=== PATIENT | female | born 1995 | race Caucasian/White ===

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

== ENCOUNTER 2017-02-21 16:20 | Inpatient (IN) | payer MEDICAID, OTHER ==
[2017-02-21] MEDS ORDERED: Sodium Chloride 0.9% 1,000 ML IV STA (17:17)
--- NOTE | 2017-02-21 17:20 | ED PDOC ---
HPI: General Adult Time Seen by Provider: 02/21/17 17:00 Chief Complaint (Nursing): Abnormal Skin Integrity Chief Complaint (Provider): fever/syncope History Per: Patient (21 y/o female with fever x 1 day. Notes right breast pain with bloody discharge from nipple. Has had sore throat/cervical lymphadenopathy noted. Denies any vomiting/diarrhea.) Past Medical History Reviewed: Historical Data, Nursing Documentation, Vital Signs Vital Signs: Last Vital Signs Temp 100.3 F H 02/21/17 16:49 Pulse 105 H 02/21/17 16:49 Resp 20 02/21/17 16:49 BP Pulse Ox 100 02/21/17 19:47 - Medical History PMH: Asthma - Family History Family History: States: Unknown Family Hx - Home Medications Home Medications: Ambulatory Orders Medication Instructions Recorded No Known Home Med 02/21/17 - Allergies Allergies/Adverse Reactions: Allergies Allergy/AdvReac Type Severity Reaction Status Date / Time Penicillins Allergy Mild RASH Verified 02/21/17 16:48 Review of Systems ROS Statement: Except As Marked, All Systems Reviewed And Found Negative Constitutional: Positive for: Fever Physical Exam - Reviewed Nursing Documentation Reviewed: Yes Vital Signs Reviewed: Yes - Physical Exam Appears: Positive for: Well, Non-toxic, No Acute Distress Head Exam: Positive for: ATRAUMATIC, NORMAL INSPECTION, NORMOCEPHALIC Skin: Positive for: Normal Color, Warm, DRY Eye Exam: Positive for: EOMI, Normal appearance, PERRL ENT: Positive for: Normal ENT Inspection Neck: Positive for: Normal, Painless ROM Cardiovascular/Chest: Positive for: Regular Rate, Rhythm, Other (right nipple tender with escoriation. No abscess discerned.) Respiratory: Positive for: CNT, Normal Breath Sounds Gastrointestinal/Abdominal: Positive for: Normal Exam, Bowel Sounds, Soft Back: Positive for: Normal Inspection Extremity: Positive for: Normal ROM Neurologic/Psych: Positive for: Alert, Oriented - Laboratory Results Result Diagrams: 02/21/17 18:15 02/21/17 18:15 Urine POC: Negative - ECG ECG Rhythm: Positive for: Sinus Tachycardia (109 bpm no ectopy no acute changes) O2 Sat by Pulse Oximetry: 100 - Progress ED Course And Treament: BC X 2 LACTATE WNL CLINDAMYCIN 600MG IV X 1 DOSE CALL PLACED TO HOSPITALIST. Disposition - Clinical Impression Clinical Impression: Mastitis - Patient ED Disposition Is Patient to be Admitted: Yes - Disposition Disposition Time: 19:53 Condition: FAIR Forms: [employer] (Norwegian) - Pt Status Changed To: Hospital Disposition Of: Inpatient - Admit Certification Admit to Inpatient:: After my assessment, the patient will require hospitalization for at least two midnights. This is because of the severity of symptoms shown, intensity of services needed, and/or the medical risk in this patient being treated as an outpatient.
[2017-02-21 18:19] LABS: BASO % 0.1 % (0.0-2.0); EOS % 0.1 % (0.0-4.0); HEMATOCRIT 40.4 % (34.0-47.0); LYMPH # 0.7 K/uL (1.0-4.3); LYMPH % 4.1 % (20.0-40.0); MEAN CELL VOLUME 94.4 fl (81.0-99.0); MEAN CORPUSCULAR HGB CONC 32.8 g/dL (33.0-37.0); MEAN PLATELET VOLUME 6.9 fl (7.2-11.7); MONO # 0.6 K/uL (0.0-0.8); MONO % 3.4 % (0.0-10.0); NEUT # 16.7 K/uL (1.8-7.0); NEUT % 92.3 % (50.0-75.0); PLATELET COUNT 287 K/uL (130-400); RED CELL DISTRIBUTION WIDTH 13.8 % (11.5-14.5); WHITE BLOOD COUNT 18.1 K/uL (4.8-10.8)
[2017-02-21 18:29] LABS: BLOOD UREA NITROGEN 11 mg/dl (7-17); CALCIUM 9.2 mg/dL (8.4-10.2); CARBON DIOXIDE 22 mmol/L (22-30); CHLORIDE 104 mmol/L (98-107); GFR AFRICAN-AMERICAN > 60; GLUCOSE,RANDOM 102 mg/dL (65-105); POTASSIUM 3.7 MMOL/L (3.6-5.0); SODIUM 139 mmol/l (132-148)
[2017-02-21] MEDS ORDERED: Clindamycin 600 MG in Sodium Chloride 0.9% 100 ML IVPB ONE (19:38)
[2017-02-21 20:05] LABS: NEUTROPHIL 87 % (42-75); TOTAL CELLS COUNTED 100
--- NOTE | 2017-02-21 20:12 | CP.PCM.HP ---
History of Present Illness - History of Present Illness History of Present Illness: PCP: None Chief complaint: Painful right breast The patient was seen and examined in the ED HPI: 21 years old female with hx of childhood Asthma, Comes to the Ed with 2 weeks of painful erythema and swelling of the right breast.She noted bloody discharge and fever for the past 2 days. On the day of admission while in school, she was with fever, very dizzy, and on lying down she think's that she passed out. She has been having sore throat and generalized body aches for 2 days, no coughing, vomiting, abdominal pains, diarrhea nor dysuria. PMH: Childhood Asthma; Ruptured Ovarian cyst; Marjuana intoxication PSH: No Surgical hx SH: No Alcohol; No Cigarette Smoking; No illegal drug use; Live in dorm and at home, Goes to College FH: States: Unknown Family Hx Allergies: Penicillin causes rash Medication: None Present on Admission - Present on Admission Any Indicators Present on Admission: No History of DVT/PE: No History of Uncontrolled Diabetes: No Urinary Catheter: No Decubitus Ulcer Present: No Review of Systems - Constitutional Constitutional: Fever. absent: Anorexia, Chills, Headache - EENT Eyes: Requires Corrective Lenses. absent: Diplopia, Floaters, Photophobia, Sees Flashes Ears: absent: Decreased Hearing, Ear Discharge, Tinnitus Nose/Mouth/Throat: Sore Throat, Neck Pain. absent: Epistaxis, Nasal Congestion , Nasal Discharge, Sinus Pain, Sinus Pressure, Hoarsness - Breasts Breasts: Pain, Nipple Discharge. absent: Nipple Inversion, Swelling Additional comments: Right breast pain. - Respiratory Respiratory: absent: Cough, Dyspnea, Wheezing, Stridor - Gastrointestinal Gastrointestinal: absent: Abdominal Pain, Constipation, Diarrhea, Nausea, Vomiting - Genitourinary Genitourinary: absent: Dysuria, Flank Pain, Hematuria, Urinary Frequency - Menstruation Additional comments: LMP 2 weeks ago - Musculoskeletal Additional comments: Pain to the lower back and to the legs - Integumentary Integumentary: Skin Pain. absent: Pruritus, Rash, Skin Ulcer, Sores - Neurological Neurological: Dizziness. absent: Confusion, Focal Weakness, Headaches, Weakness - Psychiatric Psychiatric: Depression. absent: Anxiety, Panic Attacks - Endocrine Endocrine: absent: Palpitations, Polydipsia, Polyphagia, Polyuria - Hematologic/Lymphatic Hematologic: absent: Easy Bleeding, Easy Bruising Past Patient History - Past Medical History & Family History Past Medical History?: Yes - Past Social History Smoking Status: Never Smoked Chewing Tobacco Use: No Cigar Use: No Alcohol: None Drugs: Denies Home Situation {Lives}: Friends - CARDIAC Hx Cardiac Disorders: No - PULMONARY Hx Asthma: Yes - NEUROLOGICAL Hx Neurological Disorder: No - HEENT Hx HEENT Problems: No - RENAL Hx Chronic Kidney Disease: No - ENDOCRINE/METABOLIC Hx Endocrine Disorders: No - HEMATOLOGICAL/ONCOLOGICAL Hx Blood Disorders: No - INTEGUMENTARY Hx Dermatological Problems: No - MUSCULOSKELETAL/RHEUMATOLOGICAL Hx Musculoskeletal Disorders: No - GASTROINTESTINAL Hx Gastrointestinal Disorders: No - GENITOURINARY/GYNECOLOGICAL Hx Genitourinary Disorders: No - PSYCHIATRIC Hx Depression: Yes Hx Substance Use: No - SURGICAL HISTORY Hx Surgeries: No - ANESTHESIA Hx Anesthesia: No Meds Allergies/Adverse Reactions: Allergies Allergy/AdvReac Type Severity Reaction Status Date / Time Penicillins Allergy Mild RASH Verified 02/22/17 00:21 Physical Exam - Constitutional Appears: No Acute Distress - Head Exam Head Exam: ATRAUMATIC, NORMOCEPHALIC - Eye Exam Eye Exam: EOMI, Normal appearance Pupil Exam: NORMAL ACCOMODATION, PERRL - ENT Exam ENT Exam: Normal External Ear Exam, Normal Oropharynx - Neck Exam Additional comments: Throat eith enlarged tonsilles with mild erythema - Respiratory Exam Respiratory Exam: Clear to Auscultation Bilateral. absent: Rales, Rhonchi, Wheezes - Cardiovascular Exam Cardiovascular Exam: REGULAR RHYTHM, RRR, +S1, +S2. absent: Gallop, JVD - GI/Abdominal Exam GI & Abdominal Exam: Normal Bowel Sounds, Soft. absent: Mass, Tenderness - Rectal Exam Rectal Exam: Deferred - Extremities Exam Additional comments: Pain to the left ankle more than the right ankle No pain to the Calf muscles nor the thighs - Back Exam Back exam: NORMAL INSPECTION. absent: CVA tenderness (L), CVA tenderness (R) - Neurological Exam Neurological exam: Alert, CN II-XII Intact, Oriented x3, Reflexes Normal - Psychiatric Exam Psychiatric exam: Normal Affect, Normal Mood - Skin Skin Exam: Dry, Intact, Warm Additional comments: The right breast is soft, no masses, tender completely from the upper margins to the anterior axilla kulwinder to below the breast and to the medial margin of the preast. There is an erythematous line surrounding the nipple approximately 3cm radius. No right axilla lymphadenopathy. Results - Vital Signs Recent Vital Signs: Last Vital Signs Temp 100.3 F H 02/21/17 16:49 Pulse 105 H 02/21/17 16:49 Resp 20 02/21/17 16:49 BP Pulse Ox 100 02/21/17 19:47 - Labs Result Diagrams: 02/21/17 18:15 02/21/17 18:15 Labs: Laboratory Results - last 24 hr 02/21/17 02/21/17 02/21/17 18:15 18:15 18:15 WBC 18.1 H D RBC 4.28 Hgb 13.3 Hct 40.4 MCV 94.4 MCH 31.0 MCHC 32.8 L RDW 13.8 Plt Count 287 MPV 6.9 L Neut % (Auto) 92.3 H Lymph % (Auto) 4.1 L Reynolds % (Auto) 3.4 Eos % (Auto) 0.1 Baso % (Auto) 0.1 Neut # 16.7 H Lymph # 0.7 L Reynolds # 0.6 Eos # 0.0 Baso # 0.0 Neutrophils % (Manual) 87 H Band Neutrophils % 4 H Lymphocytes % (Manual) 5 L Monocytes % (Manual) 4 Platelet Estimate Normal Anisocytosis (manual) Slight Macrocytosis (manual) Slight Sodium 139 Potassium 3.7 Chloride 104 Carbon Dioxide 22 Anion Gap 17 BUN 11 Creatinine 0.7 Est GFR ( Amer) > 60 Est GFR (Non-Af Amer) > 60 Random Glucose 102 Lactic Acid 1.4 Calcium 9.2 Infectious Reynolds Assay Grp A Beta Strep Ag 02/21/17 02/21/17 18:15 18:15 WBC RBC Hgb Hct MCV MCH MCHC RDW Plt Count MPV Neut % (Auto) Lymph % (Auto) Reynolds % (Auto) Eos % (Auto) Baso % (Auto) Neut # Lymph # Reynolds # Eos # Baso # Neutrophils % (Manual) Band Neutrophils % Lymphocytes % (Manual) Monocytes % (Manual) Platelet Estimate Anisocytosis (manual) Macrocytosis (manual) Sodium Potassium Chloride Carbon Dioxide Anion Gap BUN Creatinine Est GFR ( Amer) Est GFR (Non-Af Amer) Random Glucose Lactic Acid Calcium Infectious Reynolds Assay Negative Grp A Beta Strep Ag Negative - Imaging and Cardiology US of Right Breast Additional comment: EXAM: US Right Breast Complete FINDINGS: Solid nodules: None. Cystic masses: None. Architectural distortion: None. Acoustical shadowing: None. Skin thickening: None. Axillary adenopathy: None. IMPRESSION: No sonographic evidence of abscess within the right breast. Assessment & Plan - Assessment and Plan (Free Text) Assessment: #.Right Mastitis #.Viral syndrome Plan: 21 years old female with hx of childhood Asthma, Comes to the Ed with 2 weeks of painful erythema and swelling of the right breast, with bloody discharge and fever for the past 2 days. Associated with dizziness body aches and throat aches. #. Mastitis - Consult ID Dr Bear - Clindamycin - Aztreonam - IV Fluid - Warm compressor to breast - Pain management with Toradol - Follow Blood Cultures #.Viral syndrome - Tylenol for fever - Pain management #. DVT Prophylaxis with Lovenox #. Code Status:Full - Date & Time Date: 02/21/17 Time: 20:12
--- NOTE | 2017-02-21 21:03 | US ---
EXAM: US Right Breast Complete CLINICAL HISTORY: 21 years old, female; Pain; Breast pain; Right; Additional info: R/O abscess TECHNIQUE: Static sonographic images of the right breast with image documentation utilizing a linear transducer. Imaging was obtained in all four quadrants, retroareolar region, and the axillae. COMPARISON: No relevant prior studies available. FINDINGS: Solid nodules: None. Cystic masses: None. Architectural distortion: None. Acoustical shadowing: None. Skin thickening: None. Axillary adenopathy: None. IMPRESSION: No sonographic evidence of abscess within the right breast.
[2017-02-21] MEDS ORDERED: Sodium Chloride 0.9% 1,000 ML IV SCH (21:45)
[2017-02-22 01:39] VITALS: BMI 23.1
[2017-02-22] MEDS: Clindamycin 600 MG in Sodium Chloride 0.9% 100 ML IVPB SCH ×2 (04:01→12:05)
[2017-02-22 06:42] LABS: BASO % 0.2 % (0.0-2.0); EOS # 0.1 K/uL (0.0-0.7); EOS % 0.8 % (0.0-4.0); HEMATOCRIT 32.4 % (34.0-47.0); LYMPH # 0.7 K/uL (1.0-4.3); LYMPH % 5.5 % (20.0-40.0); MEAN CELL VOLUME 94.2 fl (81.0-99.0); MEAN CORPUSCULAR HEMOGLOBIN 31.6 pg (27.0-31.0); MEAN CORPUSCULAR HGB CONC 33.6 g/dL (33.0-37.0); MONO # 0.6 K/uL (0.0-0.8); MONO % 4.3 % (0.0-10.0); NEUT # 11.5 K/uL (1.8-7.0); NEUT % 89.2 % (50.0-75.0); RED CELL DISTRIBUTION WIDTH 13.3 % (11.5-14.5); WHITE BLOOD COUNT 12.9 K/uL (4.8-10.8)
--- NOTE | 2017-02-22 08:05 | CARD ---
APPROVED REPORT EKG Measurement Heart [id number] <Conclusion> Sinus tachycardia Incomplete right bundle branch block Borderline ECG
[2017-02-22] MEDS: Enoxaparin 40 mg Syringe SC SCH (09:24)
--- NOTE | 2017-02-22 11:25 | CP.PCM.CON ---
History of Present Illness - History of Present Illness History of Present Illness: Infectious Disease Consultation Note- Asked to see this patient at the request of the hospitalist for mastitis. HPI- Patient is a 21 year old female with no pmh other than childhood asthma who presented to the hospital yesterday c/o right breast pain and bloody discharge from the nipple and warmth and redness on the right breast along with fever , lighheadedness and weakness. Patient explains her symptoms started about 2 weeks ago with some bloody nipple discharge but she did not think much of it but states the other day she was at school and developed fever and bloody right nipple discharge and passed out and school nurse told her she should go to ER for further evaluation. Pt. denies any injury to the breast region and denies having anything like this before. Pt. states few years ago she had cellulitis of the right foot and she got rash with PCN but no other reaction and rash was localized as per pt. Pt. also states she had sore throat yesterday but not today. she also mentions that there is family history of breast cancer in her maternal grandaunt and grandmother. pt. states she has never been and is not now. PMH: Childhood Asthma, cellulitis of the right foot few years ago PSH: No Surgical hx SH: No Alcohol; No Cigarette Smoking; No illegal drug use; Live in dorm and at home, Goes to College Allergies: Penicillin causes rash Medication: None Review of Systems - Review of Systems Review of Systems: ROS- + fever, denies any ALEJANDRO, denies any cough, + sore throat but not now, denies any sob, denies any chest pain, denies any N/V, denies any abd. pain, denies any dysurea, denies any diarrhea + right breast pain and redness and warmth and right nipple bloody discharge for 2 weeks lissette nd off and once pus like discharge Past Patient History - Past Medical History & Family History Past Medical History?: Yes - Past Social History Smoking Status: Never Smoked Chewing Tobacco Use: No Cigar Use: No Alcohol: None Drugs: Denies Home Situation {Lives}: With Family - CARDIAC Hx Cardiac Disorders: No - PULMONARY Hx Asthma: Yes - NEUROLOGICAL Hx Neurological Disorder: No - HEENT Hx HEENT Problems: No - RENAL Hx Chronic Kidney Disease: No - ENDOCRINE/METABOLIC Hx Endocrine Disorders: No - HEMATOLOGICAL/ONCOLOGICAL Hx Blood Disorders: No - INTEGUMENTARY Hx Dermatological Problems: No - MUSCULOSKELETAL/RHEUMATOLOGICAL Hx Musculoskeletal Disorders: No - GASTROINTESTINAL Hx Gastrointestinal Disorders: No - GENITOURINARY/GYNECOLOGICAL Hx Genitourinary Disorders: No - PSYCHIATRIC Hx Depression: Yes Hx Substance Use: No - SURGICAL HISTORY Hx Surgeries: No - ANESTHESIA Hx Anesthesia: No Meds Allergies/Adverse Reactions: Allergies Allergy/AdvReac Type Severity Reaction Status Date / Time Penicillins Allergy Mild RASH Verified 02/22/17 00:21 - Medications Medications: Current Medications Acetaminophen (Tylenol 325mg Tab) 650 mg PO Q4 PRN PRN Reason: Fever >100.4 F Last Admin: 02/22/17 05:53 Dose: 650 mg Enoxaparin Sodium (Lovenox) 40 mg SC DAILY DALLIN PRN Reason: Protocol Last Admin: 02/22/17 09:24 Dose: 40 mg Clindamycin Phosphate 600 mg/ (Sodium Chloride) 104 mls @ 104 mls/hr IVPB Q8H DALLIN PRN Reason: Protocol Last Admin: 02/22/17 04:01 Dose: 104 mls/hr Aztreonam 1 gm/ Sodium (Chloride) 50 mls @ 50 mls/hr IVPB Q8@0000,0800,1600 DALLIN PRN Reason: Protocol Last Admin: 02/22/17 09:00 Dose: 50 mls/hr Ketorolac Tromethamine (Toradol) 15 mg IVP Q6 PRN PRN Reason: Pain, moderate (4-7) Ketorolac Tromethamine (Toradol) 30 mg IVP Q6 PRN PRN Reason: Pain, severe (8-10) Physical Exam - Constitutional Appears: No Acute Distress - Head Exam Head Exam: ATRAUMATIC, NORMAL INSPECTION - Eye Exam Eye Exam: EOMI, PERRL - ENT Exam ENT Exam: Normal Oropharynx - Neck Exam Neck exam: Positive for: Full Rom - Respiratory Exam Respiratory Exam: Clear to Auscultation Bilateral, NORMAL BREATHING PATTERN - Cardiovascular Exam Cardiovascular Exam: RRR, +S1, +S2 - GI/Abdominal Exam GI & Abdominal Exam: Normal Bowel Sounds, Soft Additional comments: NT, ND - Extremities Exam Extremities exam: Positive for: normal inspection - Neurological Exam Neurological exam: Alert, Oriented x3 - Skin Additional comments: Right breast- minimal erythematous skin around the peripheral nipple region up to mid outer breast region, very tender to touch, no lumps on exam but ecam limited secondary to patient's pain . no active nipple discharge now on exam, minimal scant yellow fluid seen on tip of the nipple only , however, pt. very tender to touch and hence not expressed ( accounting professor her mother present the whole time during exam). Results - Vital Signs Recent Vital Signs: Last Vital Signs Temp 99.4 F 02/22/17 08:10 Pulse 90 02/22/17 08:10 Resp 20 02/22/17 08:10 BP 106/80 02/22/17 08:10 Pulse Ox 98 02/22/17 08:10 - Labs Result Diagrams: 02/22/17 05:50 02/21/17 18:15 Labs: Laboratory Results - last 24 hr 02/21/17 02/21/17 02/21/17 18:15 18:15 18:15 WBC 18.1 H D RBC 4.28 Hgb 13.3 Hct 40.4 MCV 94.4 MCH 31.0 MCHC 32.8 L RDW 13.8 Plt Count 287 MPV 6.9 L Neut % (Auto) 92.3 H Lymph % (Auto) 4.1 L Tyrrell % (Auto) 3.4 Eos % (Auto) 0.1 Baso % (Auto) 0.1 Neut # 16.7 H Lymph # 0.7 L Tyrrell # 0.6 Eos # 0.0 Baso # 0.0 Neutrophils % (Manual) 87 H Band Neutrophils % 4 H Lymphocytes % (Manual) 5 L Monocytes % (Manual) 4 Platelet Estimate Normal Anisocytosis (manual) Slight Macrocytosis (manual) Slight Sodium 139 Potassium 3.7 Chloride 104 Carbon Dioxide 22 Anion Gap 17 BUN 11 Creatinine 0.7 Est GFR ( Amer) > 60 Est GFR (Non-Af Amer) > 60 Random Glucose 102 Lactic Acid 1.4 Calcium 9.2 Infectious Tyrrell Assay Grp A Beta Strep Ag 02/21/17 02/21/17 02/22/17 18:15 18:15 05:50 WBC 12.9 H RBC 3.44 L Hgb 10.9 L D Hct 32.4 L MCV 94.2 MCH 31.6 H MCHC 33.6 RDW 13.3 Plt Count 231 MPV 7.0 L Neut % (Auto) 89.2 H Lymph % (Auto) 5.5 L Tyrrell % (Auto) 4.3 Eos % (Auto) 0.8 Baso % (Auto) 0.2 Neut # 11.5 H Lymph # 0.7 L Tyrrell # 0.6 Eos # 0.1 Baso # 0.0 Neutrophils % (Manual) Band Neutrophils % Lymphocytes % (Manual) Monocytes % (Manual) Platelet Estimate Anisocytosis (manual) Macrocytosis (manual) Sodium Potassium Chloride Carbon Dioxide Anion Gap BUN Creatinine Est GFR ( Amer) Est GFR (Non-Af Amer) Random Glucose Lactic Acid Calcium Infectious Tyrrell Assay Negative Grp A Beta Strep Ag Negative Laboratory Results - last 72 hr 02/21/17 02/21/17 02/21/17 18:15 18:15 18:15 WBC 18.1 H D RBC 4.28 Hgb 13.3 Hct 40.4 MCV 94.4 MCH 31.0 MCHC 32.8 L RDW 13.8 Plt Count 287 MPV 6.9 L Neut % (Auto) 92.3 H Lymph % (Auto) 4.1 L Tyrrell % (Auto) 3.4 Eos % (Auto) 0.1 Baso % (Auto) 0.1 Neut # 16.7 H Lymph # 0.7 L Tyrrell # 0.6 Eos # 0.0 Baso # 0.0 Neutrophils % (Manual) 87 H Band Neutrophils % 4 H Lymphocytes % (Manual) 5 L Monocytes % (Manual) 4 Platelet Estimate Normal Anisocytosis (manual) Slight Macrocytosis (manual) Slight Sodium 139 Potassium 3.7 Chloride 104 Carbon Dioxide 22 Anion Gap 17 BUN 11 Creatinine 0.7 Est GFR ( Amer) > 60 Est GFR (Non-Af Amer) > 60 Random Glucose 102 Lactic Acid 1.4 Calcium 9.2 Infectious Tyrrell Assay Grp A Beta Strep Ag 02/21/17 02/21/17 02/22/17 18:15 18:15 05:50 WBC 12.9 H RBC 3.44 L Hgb 10.9 L D Hct 32.4 L MCV 94.2 MCH 31.6 H MCHC 33.6 RDW 13.3 Plt Count 231 MPV 7.0 L Neut % (Auto) 89.2 H Lymph % (Auto) 5.5 L Tyrrell % (Auto) 4.3 Eos % (Auto) 0.8 Baso % (Auto) 0.2 Neut # 11.5 H Lymph # 0.7 L Tyrrell # 0.6 Eos # 0.1 Baso # 0.0 Neutrophils % (Manual) Band Neutrophils % Lymphocytes % (Manual) Monocytes % (Manual) Platelet Estimate Anisocytosis (manual) Macrocytosis (manual) Sodium Potassium Chloride Carbon Dioxide Anion Gap BUN Creatinine Est GFR ( Amer) Est GFR (Non-Af Amer) Random Glucose Lactic Acid Calcium Infectious Tyrrell Assay Negative Grp A Beta Strep Ag Negative Accession No. : [id number] Patient Name / ID : ANIA Bob / [id number] Exam Date : 02/21/2017 20:10:10 ( Approved ) Study Comment : Sex / Age : F / 21 Creator : Waldo Chino MD Dictator : Dumpster Operator : Jig And Fixture Builder : Waldo Chino MD Approver2 : Report Date : 02/21/2017 21:02:00 My Comment : [facility] Division of Radiology [address] [place] [address] Tel. no. Patient Name: PERLA BAEZ Pt. Address: [address] [place] [address] Rec #: [id number] [place] [address]: Rah Aguilar PA-C Pt CELL Order Location: [facility] : 1995 Female Age: 21 Order #: [id number] Reason for exam: R/O ABSCESS Ultrasound BREAST UNILATERAL RIGHT Exam Date: 02/21/17 This imaging exam was performed at [facility] EXAM: US Right Breast Complete CLINICAL HISTORY: 21 years old, female; Pain; Breast pain; Right; Additional info: R/O abscess TECHNIQUE: Static sonographic images of the right breast with image documentation utilizing a linear transducer. Imaging was obtained in all four quadrants, retroareolar region, and the axillae. COMPARISON: No relevant prior studies available. FINDINGS: Solid nodules: None. Cystic masses: None. Architectural distortion: None. Acoustical shadowing: None. Skin thickening: None. Axillary adenopathy: None. IMPRESSION: No sonographic evidence of abscess within the right breast. Dictated By: Waldo Chino MD Dictated Date/Time: 02/21/172101 Signed By: Waldo Chino MD Date Signed: 2101 Transcribed By: CLEM Transcribe Date/Time : 02/21/172101 ACYP02/YOSHI Assessment & Plan (1) Mastitis Status: Acute (2) Fever Status: Acute - Assessment and Plan (Free Text) Assessment: A/P- 21 year old female with right mastitis, rule out abscess. continues to be febrile although fever t-max are trending down. Leukocytosis improving . no culture results yet. breast US as per report no cyst or mas or any fluid collection. plan- check blood cx x 2. advise to continue with current antibiotics ( aztreonam) since pt. has been repsonding to this with decrease in wbc. however would advise to start IV vancomycin while inpatient and d/c clindamycin for now. monitor temps and wbc. If possible check swab cx of the nipple discharge if present. advise to apply warm compress to the right breast region not directly on the nipple, however, advise to also send the nipple discharge fluid for cytology since there ifs family history of breast cancer. may need to be seen by ANIMAL NURSE or breast specialist as well. All above d/w patient and her mother who is at bedside and they verbalize full understanding of all above. Thank you fro allowing me to take part in the care of this patient.
--- NOTE | 2017-02-22 14:57 | CP.PCM.PN ---
Subjective - Date & Time of Evaluation Date of Evaluation: 02/22/17 Time of Evaluation: 14:00 - Subjective Subjective: Pt remains febrile however WBC count trended down pt states her breast feels very heavy and tender , sl better today Attempted to express out any discharge ( for culture/cytolgy )however nothing came out Pt denies any other symptom Pt states that she covered her nipple with cotton wipe and when she woke up she noticed blood tinge discharge on the cotton however she did not see any gross blood coming out of the nipple Mother at bedside , discussed test results and treatment plan Objective - Vital Signs/Intake and Output Vital Signs (last 24 hours): Temp Pulse Resp BP Pulse Ox 100.2 F H 104 H 22 122/70 100 02/22/17 13:39 02/22/17 12:25 02/22/17 12:25 02/22/17 12:25 02/22/17 12:25 Intake and Output: 02/22/17 02/22/17 06:59 18:59 Intake Total 1150 Balance 1150 - Medications Medications: Current Medications Acetaminophen (Tylenol 325mg Tab) 650 mg PO Q4 PRN PRN Reason: Fever >100.4 F Last Admin: 02/22/17 12:39 Dose: 650 mg Enoxaparin Sodium (Lovenox) 40 mg SC DAILY DALLIN PRN Reason: Protocol Last Admin: 02/22/17 09:24 Dose: 40 mg Aztreonam 1 gm/ Sodium (Chloride) 50 mls @ 50 mls/hr IVPB Q8@0000,0800,1600 DALLIN PRN Reason: Protocol Last Admin: 02/22/17 09:00 Dose: 50 mls/hr Vancomycin HCl 1 gm/ Sodium (Chloride) 250 mls @ 166.667 mls/hr IVPB Q12 DALLIN PRN Reason: Protocol Ibuprofen (Motrin Tab) 400 mg PO Q6 PRN PRN Reason: Pain, Mild (1-3) Ketorolac Tromethamine (Toradol) 15 mg IVP Q6 PRN PRN Reason: Pain, moderate (4-7) Ketorolac Tromethamine (Toradol) 30 mg IVP Q6 PRN PRN Reason: Pain, severe (8-10) - Labs Labs: 02/22/17 05:50 02/21/17 18:15 - Constitutional Appears: No Acute Distress - Head Exam Head Exam: NORMAL INSPECTION, NORMOCEPHALIC - Eye Exam Eye Exam: EOMI, Normal appearance, PERRL Pupil Exam: NORMAL ACCOMODATION - ENT Exam ENT Exam: Mucous Membranes Moist, Normal External Ear Exam - Neck Exam Neck Exam: Full ROM. absent: Meningismus - Respiratory Exam Respiratory Exam: NORMAL BREATHING PATTERN. absent: Respiratory Distress - Cardiovascular Exam Cardiovascular Exam: REGULAR RHYTHM, +S1, +S2 Additional comments: Right breast larger than left , erythematous patch noted , tender no nipple discharge - GI/Abdominal Exam GI & Abdominal Exam: Soft, Normal Bowel Sounds. absent: Tenderness - Extremities Exam Extremities Exam: Full ROM, Normal Capillary Refill. absent: Calf Tenderness - Back Exam Back Exam: Full ROM. absent: CVA tenderness (L), CVA tenderness (R) - Neurological Exam Neurological Exam: Alert, Awake, CN II-XII Intact, Oriented x3 Neuro motor strength exam: Left Upper Extremity: 5, Right Upper Extremity: 5, Left Lower Extremity: 5, Right Lower Extremity: 5 - Psychiatric Exam Psychiatric exam: Normal Affect, Normal Mood - Skin Skin Exam: Dry, Normal Color, Warm Assessment and Plan (1) Mastitis Status: Acute - Assessment and Plan (Free Text) Assessment: 21 y/o lady , no significcant PMH, came in bec of fever, and right breast pain and swelling. 1. Right Breast Cellulitis/Mastitis , non puerperal Pt came in with fever, elevated WBC , breast pain, swelling, tenderness Noted a tinge of blood on cotton used to cover nipple however denies any gross bloody discharge. Pt started on IV Clinda and Aztreonam ID consulted- rec to cont Aztreonam and change Clinda to Vanco I attempted to express discharge from nipple however NO discharge came out that can be cultured or sent for Cytology Warm compress Pain mgt Blood c/s : pending 2. DVT proph - Lovenox
[2017-02-22] MEDS ORDERED: DiphenhydrAMINE 50 mg/ml Inj IM STA (21:21)
[2017-02-22] MEDS ORDERED: DiphenhydrAMINE 50 mg/ml Inj IVP STA (21:39)
[2017-02-22] MEDS ORDERED: Sodium Chloride 0.9% 1,000 ML IV SCH (21:45)
[2017-02-23 05:37] LABS: BASO % 0.2 % (0.0-2.0); EOS # 0.3 K/uL (0.0-0.7); EOS % 3.3 % (0.0-4.0); LYMPH # 1.7 K/uL (1.0-4.3); LYMPH % 18.7 % (20.0-40.0); MEAN CELL VOLUME 93.9 fl (81.0-99.0); MEAN CORPUSCULAR HEMOGLOBIN 31.9 pg (27.0-31.0); MEAN PLATELET VOLUME 6.7 fl (7.2-11.7); MONO # 0.6 K/uL (0.0-0.8); MONO % 6.1 % (0.0-10.0); NEUT # 6.7 K/uL (1.8-7.0); NEUT % 71.7 % (50.0-75.0); RED CELL DISTRIBUTION WIDTH 13.8 % (11.5-14.5); WHITE BLOOD COUNT 9.3 K/uL (4.8-10.8)
[2017-02-23] MEDS: Enoxaparin 40 mg Syringe SC SCH (09:23)
--- NOTE | 2017-02-23 12:27 | CP.PCM.PN ---
Subjective - Date & Time of Evaluation Date of Evaluation: 02/23/17 Time of Evaluation: 12:26 - Subjective Subjective: pt seen examined bedside for L sided mastitis states it is appearing more red than before HD stable still very tender especially on movement. Objective - Vital Signs/Intake and Output Vital Signs (last 24 hours): Temp Pulse Resp BP Pulse Ox 98.3 F 94 H 24 112/67 99 02/23/17 08:00 02/23/17 08:00 02/23/17 08:00 02/23/17 08:00 02/23/17 08:00 Physical exam: Constitutional- cooperative, awake, alert. Head- NCAT, PERRL Eye- PERRL, normal accommodation ENT- normal exam, MMM. Neck- normal inspection, supple, no JVD Respiratory- CTAB, no wheezes rales rhonchi Chest- left breast moderately edematous compared to right breast, increased erythema today, exquisitely tender, nipple appears normal Cardiovascular- RRR, +S1, +S2 no MRG GI/Abdominal- normal bowel sounds, soft, no mass, no hsm Skin- warm, dry Extremities Exam- normal capillary refill, normal inspection Neurological Exam- alert, stable gait Psych- normal mood, normal affect Intake and Output: 02/23/17 02/23/17 06:59 18:59 Intake Total 1680 Balance 1680 - Medications Medications: Current Medications Acetaminophen (Tylenol 325mg Tab) 650 mg PO Q4 PRN PRN Reason: Fever >100.4 F Last Admin: 02/23/17 01:12 Dose: 650 mg Enoxaparin Sodium (Lovenox) 40 mg SC DAILY DALLIN PRN Reason: Protocol Last Admin: 02/23/17 09:23 Dose: 40 mg Aztreonam 1 gm/ Sodium (Chloride) 50 mls @ 50 mls/hr IVPB Q8@0000,0800,1600 DALLIN PRN Reason: Protocol Last Admin: 02/23/17 08:09 Dose: 50 mls/hr Sodium Chloride (Sodium Chloride 0.9%) 1,000 mls @ 100 mls/hr IV .Q10H DALLIN Stop: 02/23/17 21:40 Last Admin: 02/23/17 06:47 Dose: 100 mls/hr Vancomycin HCl 1 gm/ Sodium (Chloride) 250 mls @ 75 mls/hr IVPB Q12 DALLIN PRN Reason: Protocol Last Admin: 02/23/17 09:49 Dose: 75 mls/hr Ibuprofen (Motrin Tab) 400 mg PO Q6 PRN PRN Reason: Pain, Mild (1-3) Last Admin: 02/22/17 16:10 Dose: 400 mg Ketorolac Tromethamine (Toradol) 15 mg IVP Q6 PRN PRN Reason: Pain, moderate (4-7) Ketorolac Tromethamine (Toradol) 30 mg IVP Q6 PRN PRN Reason: Pain, severe (8-10) - Labs Labs: 02/23/17 05:20 02/21/17 18:15 Assessment and Plan - Assessment and Plan (Free Text) Plan: 21 y/o lady, no significcant PMH, came in 2/2 fever and right breast pain and swelling. 1. Right Breast Cellulitis/Mastitis , non puerperal Pt came in with fever, elevated WBC , breast pain, swelling, tenderness Noted a tinge of blood on cotton used to cover nipple however denies any gross bloody discharge. Pt started on IV Clinda and Aztreonam ID consulted- rec to cont Aztreonam and change Clinda to Vanco, given slowly will obtain surgery cx and breast MRI Warm compress Pain mgt Blood c/s : pending 2. DVT proph - Lovenox
--- NOTE | 2017-02-23 13:34 | CP.PCM.PN ---
Subjective - Date & Time of Evaluation Date of Evaluation: 02/23/17 Time of Evaluation: 12:00 - Subjective Subjective: ID note- Pt. seen and examined today.pt. had low grade fever earlier today . she states she developed minor itching on her neck region with the IV vancomycin but once the infusion rate was slowed it was resolved. She denies any rash. she states the pain in the right breast is less but she still has swelling , denies any further nipple discharge. Objective - Vital Signs/Intake and Output Vital Signs (last 24 hours): Temp Pulse Resp BP Pulse Ox 99.9 F H 93 H 22 119/73 100 02/23/17 12:25 02/23/17 12:25 02/23/17 12:25 02/23/17 12:25 02/23/17 12:25 Intake and Output: 02/23/17 02/23/17 06:59 18:59 Intake Total 1680 Balance 1680 - Medications Medications: Current Medications Acetaminophen (Tylenol 325mg Tab) 650 mg PO Q4 PRN PRN Reason: Fever >100.4 F Last Admin: 02/23/17 01:12 Dose: 650 mg Enoxaparin Sodium (Lovenox) 40 mg SC DAILY DALLIN PRN Reason: Protocol Last Admin: 02/23/17 09:23 Dose: 40 mg Aztreonam 1 gm/ Sodium (Chloride) 50 mls @ 50 mls/hr IVPB Q8@0000,0800,1600 DALLIN PRN Reason: Protocol Last Admin: 02/23/17 08:09 Dose: 50 mls/hr Sodium Chloride (Sodium Chloride 0.9%) 1,000 mls @ 100 mls/hr IV .Q10H DALLIN Stop: 02/23/17 21:40 Last Admin: 02/23/17 06:47 Dose: 100 mls/hr Vancomycin HCl 1 gm/ Sodium (Chloride) 250 mls @ 75 mls/hr IVPB Q12 DALLIN PRN Reason: Protocol Last Admin: 02/23/17 09:49 Dose: 75 mls/hr Ibuprofen (Motrin Tab) 400 mg PO Q6 PRN PRN Reason: Pain, Mild (1-3) Last Admin: 02/22/17 16:10 Dose: 400 mg Ketorolac Tromethamine (Toradol) 15 mg IVP Q6 PRN PRN Reason: Pain, moderate (4-7) Ketorolac Tromethamine (Toradol) 30 mg IVP Q6 PRN PRN Reason: Pain, severe (8-10) - Labs Labs: - Additional Findings Additional findings: - Constitutional Appears: No Acute Distress - Head Exam Head Exam: ATRAUMATIC, NORMAL INSPECTION - Eye Exam Eye Exam: EOMI, PERRL - ENT Exam ENT Exam: Normal Oropharynx - Neck Exam Neck exam: Positive for: Full Rom - Respiratory Exam Respiratory Exam: Clear to Auscultation Bilateral, NORMAL BREATHING PATTERN - Cardiovascular Exam Cardiovascular Exam: RRR, +S1, +S2 - GI/Abdominal Exam GI & Abdominal Exam: Normal Bowel Sounds, Soft Additional comments: NT, ND - Extremities Exam Extremities exam: Positive for: normal inspection - Neurological Exam Neurological exam: Alert, Oriented x3 - Skin Additional comments: Right breast- minimal erythematous skin around the peripheral nipple region has resolved, still has tenderness but much less than yesterday, no active nipple discharge, (assembler musical equipment her mother and the nurse present the whole time during exam). Laboratory Results - last 72 hr 02/21/17 02/21/17 02/21/17 18:15 18:15 18:15 WBC 18.1 H D RBC 4.28 Hgb 13.3 Hct 40.4 MCV 94.4 MCH 31.0 MCHC 32.8 L RDW 13.8 Plt Count 287 MPV 6.9 L Neut % (Auto) 92.3 H Lymph % (Auto) 4.1 L Swain % (Auto) 3.4 Eos % (Auto) 0.1 Baso % (Auto) 0.1 Neut # 16.7 H Lymph # 0.7 L Swain # 0.6 Eos # 0.0 Baso # 0.0 Neutrophils % (Manual) 87 H Band Neutrophils % 4 H Lymphocytes % (Manual) 5 L Monocytes % (Manual) 4 Platelet Estimate Normal Anisocytosis (manual) Slight Macrocytosis (manual) Slight Sodium 139 Potassium 3.7 Chloride 104 Carbon Dioxide 22 Anion Gap 17 BUN 11 Creatinine 0.7 Est GFR ( Amer) > 60 Est GFR (Non-Af Amer) > 60 Random Glucose 102 Lactic Acid 1.4 Calcium 9.2 Infectious Swain Assay Grp A Beta Strep Ag 02/21/17 02/21/17 02/22/17 18:15 18:15 05:50 WBC 12.9 H RBC 3.44 L Hgb 10.9 L D Hct 32.4 L MCV 94.2 MCH 31.6 H MCHC 33.6 RDW 13.3 Plt Count 231 MPV 7.0 L Neut % (Auto) 89.2 H Lymph % (Auto) 5.5 L Swain % (Auto) 4.3 Eos % (Auto) 0.8 Baso % (Auto) 0.2 Neut # 11.5 H Lymph # 0.7 L Swain # 0.6 Eos # 0.1 Baso # 0.0 Neutrophils % (Manual) Band Neutrophils % Lymphocytes % (Manual) Monocytes % (Manual) Platelet Estimate Anisocytosis (manual) Macrocytosis (manual) Sodium Potassium Chloride Carbon Dioxide Anion Gap BUN Creatinine Est GFR ( Amer) Est GFR (Non-Af Amer) Random Glucose Lactic Acid Calcium Infectious Swain Assay Negative Grp A Beta Strep Ag Negative 02/23/17 05:20 WBC 9.3 RBC 3.41 L Hgb 10.9 L Hct 32.0 L MCV 93.9 MCH 31.9 H MCHC 34.0 RDW 13.8 Plt Count 219 MPV 6.7 L Neut % (Auto) 71.7 Lymph % (Auto) 18.7 L Swain % (Auto) 6.1 Eos % (Auto) 3.3 Baso % (Auto) 0.2 Neut # 6.7 Lymph # 1.7 Swain # 0.6 Eos # 0.3 Baso # 0.0 Neutrophils % (Manual) Band Neutrophils % Lymphocytes % (Manual) Monocytes % (Manual) Platelet Estimate Anisocytosis (manual) Macrocytosis (manual) Sodium Potassium Chloride Carbon Dioxide Anion Gap BUN Creatinine Est GFR ( Amer) Est GFR (Non-Af Amer) Random Glucose Lactic Acid Calcium Infectious Swain Assay Grp A Beta Strep Ag Microbiology 02/21/17 18:15 Throat Group A Strep Throat Culture - Final NO BETA STREP GROUP A ISOLATED. 02/21/17 20:43 Urine Urine Culture - Final No Growth (<1,000 CFU/ML) 02/21/17 18:40 Blood-Venous Blood Culture - Preliminary NO GROWTH AFTER 24 HOURS 02/21/17 18:10 Blood-Venous Blood Culture - Preliminary NO GROWTH AFTER 24 HOURS Assessment and Plan (1) Mastitis Status: Acute (2) Fever Status: Acute - Assessment and Plan (Free Text) Assessment: A/P- 21 year old female with right mastitis, rule out abscess. fevers are trending down. Leukocytosis has resolved. no culture results yet. breast US as per report no cyst or mas or any fluid collection. plan- await blood cx results. advise to continue with current antibiotics ( aztreonam) since pt. has been responding to this day #2. advise to also continue with IV vancomyicn day #2. keep trough <15. advise to apply warm compress to the right breast region not directly on the nipple. may need to be seen by MINER OPERATOR or breast specialist as well since there is family history of breast cancer All above d/w patient and her mother who is at bedside and they verbalize full understanding of all above.
--- NOTE | 2017-02-23 15:53 | CP.PCM.CON ---
History of Present Illness - History of Present Illness History of Present Illness: General Surgery consult for Dr. Hernandez Consulted for: R breast mastitis Patient is a 21F with no significant PMH who presented to the ED two days ago with 2 weeks of worsening right breast pain and erythema. Patient states that right breast has been growing increasingly diffusely swollen, erythematous, and tender over 2 weeks with spontaneous bloody nipple discharge. Patient began to feel dizzy and febrile the day of admission and was sent to the ER from school after passing out. Patient was found to have a fever and leukocytosis, was admitted and started on IV antibiotics. Since then the patient states that her fevers have improved but that the pain and swelling has worsened. Breast is most tender in the right outer quadrant, a the 10 o'clock position, approximately 4cm from the nipple. She denies any current nipple discharge. Patient reports a history of right armpit cysts that were "popped" by her primary doctor in the office. Patient denies any history of palpable breast masses, head trauma, breast trauma, or any other illnesses. Patient was on oral control for heavy menstruation and pain with cycles until a few months ago. Patient has never been , never had a mammogram. Patient reports maternal grandmother of metastatic cancer, likely breast in origin, and has 2 maternal aunts currently with breast cancer. Review of Systems - Review of Systems All systems: reviewed and no additional remarkable complaints except (as per HPI ) - Constitutional Constitutional: Chills, Fever - Breasts Breasts: As Per HPI - Cardiovascular Cardiovascular: absent: Chest Pain, Dyspnea, Edema, Leg Edema - Respiratory Respiratory: absent: Cough, Dyspnea, Wheezing - Gastrointestinal Gastrointestinal: absent: Abdominal Pain, Nausea, Vomiting - Genitourinary Genitourinary: absent: Change in Urinary Stream, Dysuria - Reproductive: Female Reproductive:Female: Heavy Menses, Menopausal, Dysmenorrhea - Menstruation Menstruation: Heavy Menses, Menopausal, Dysmenorrhea - Musculoskeletal Musculoskeletal: absent: Back Pain, Numbness, Tingling - Integumentary Integumentary: As Per HPI. absent: Changing Lesions - Neurological Neurological: absent: Dizziness, Numbness, Tingling Past Patient History - Past Medical History & Family History Past Medical History?: Yes Pertinent Family History: maternal grandmother from metastatic cancer in her 70's, possibly breast primary 2 maternal aunts with breast cancer in 40's or 50's - Past Social History Smoking Status: Never Smoked Chewing Tobacco Use: No Cigar Use: No Alcohol: None Drugs: Denies Home Situation {Lives}: With Family - CARDIAC Hx Cardiac Disorders: No - PULMONARY Hx Asthma: Yes - NEUROLOGICAL Hx Neurological Disorder: No - HEENT Hx HEENT Problems: No - RENAL Hx Chronic Kidney Disease: No - ENDOCRINE/METABOLIC Hx Endocrine Disorders: No - HEMATOLOGICAL/ONCOLOGICAL Hx Blood Disorders: No - INTEGUMENTARY Hx Dermatological Problems: No - MUSCULOSKELETAL/RHEUMATOLOGICAL Hx Musculoskeletal Disorders: No - GASTROINTESTINAL Hx Gastrointestinal Disorders: No - GENITOURINARY/GYNECOLOGICAL Hx Genitourinary Disorders: No - PSYCHIATRIC Hx Depression: Yes Hx Substance Use: No - SURGICAL HISTORY Hx Surgeries: No - ANESTHESIA Hx Anesthesia: No Meds Allergies/Adverse Reactions: Allergies Allergy/AdvReac Type Severity Reaction Status Date / Time Penicillins Allergy Mild RASH Verified 02/22/17 00:21 - Medications Medications: Current Medications Acetaminophen (Tylenol 325mg Tab) 650 mg PO Q4 PRN PRN Reason: Fever >100.4 F Last Admin: 02/23/17 01:12 Dose: 650 mg Enoxaparin Sodium (Lovenox) 40 mg SC DAILY DALLIN PRN Reason: Protocol Last Admin: 02/23/17 09:23 Dose: 40 mg Aztreonam 1 gm/ Sodium (Chloride) 50 mls @ 50 mls/hr IVPB Q8@0000,0800,1600 DALLIN PRN Reason: Protocol Last Admin: 02/23/17 15:17 Dose: 50 mls/hr Sodium Chloride (Sodium Chloride 0.9%) 1,000 mls @ 100 mls/hr IV .[facility] Stop: 02/23/17 21:40 Last Admin: 02/23/17 06:47 Dose: 100 mls/hr Vancomycin HCl 1 gm/ Sodium (Chloride) 250 mls @ 75 mls/hr IVPB Q12 DALLIN PRN Reason: Protocol Last Admin: 02/23/17 09:49 Dose: 75 mls/hr Ibuprofen (Motrin Tab) 400 mg PO Q6 PRN PRN Reason: Pain, Mild (1-3) Last Admin: 02/22/17 16:10 Dose: 400 mg Ketorolac Tromethamine (Toradol) 15 mg IVP Q6 PRN PRN Reason: Pain, moderate (4-7) Ketorolac Tromethamine (Toradol) 30 mg IVP Q6 PRN PRN Reason: Pain, severe (8-10) Physical Exam - Constitutional Appears: Non-toxic, No Acute Distress - Head Exam Head Exam: ATRAUMATIC, NORMOCEPHALIC - Eye Exam Eye Exam: Normal appearance. absent: Conjunctival injection, Scleral icterus - ENT Exam ENT Exam: Mucous Membranes Moist, Normal Oropharynx - Respiratory Exam Respiratory Exam: NORMAL BREATHING PATTERN. absent: Accessory Muscle Use, Respiratory Distress - Cardiovascular Exam Cardiovascular Exam: RRR - GI/Abdominal Exam GI & Abdominal Exam: Soft. absent: Distended, Tenderness - Back Exam Back exam: absent: CVA tenderness (L), CVA tenderness (R) - Neurological Exam Neurological exam: Alert, Oriented x3 - Psychiatric Exam Psychiatric exam: Normal Affect, Normal Mood - Skin Skin Exam: Dry, Normal Color (except for right breast findings listed below), Warm - Additional Findings Additional findings: right breast diffusely swollen, mild erythema, no retraction, no peau d'orange, mildly tender to palpation diffusely with moderate tenderness at 10 o'clock position approximately 4cm from the nipple, no fluctuance or induration, no expressible nipple discharge, no palpable masses bilaterally, no axillary lymphadenopathy bilaterally Results - Vital Signs Recent Vital Signs: Last Vital Signs Temp 99.9 F H 02/23/17 12:25 Pulse 93 H 02/23/17 12:25 Resp 22 02/23/17 12:25 BP 119/73 02/23/17 12:25 Pulse Ox 100 02/23/17 12:25 - Labs Result Diagrams: 02/23/17 05:20 02/21/17 18:15 Labs: Laboratory Results - last 24 hr 02/23/17 05:20 WBC 9.3 RBC 3.41 L Hgb 10.9 L Hct 32.0 L MCV 93.9 MCH 31.9 H MCHC 34.0 RDW 13.8 Plt Count 219 MPV 6.7 L Neut % (Auto) 71.7 Lymph % (Auto) 18.7 L [place] % (Auto) 6.1 Eos % (Auto) 3.3 Baso % (Auto) 0.2 Neut # 6.7 Lymph # 1.7 [place] # 0.6 Eos # 0.3 Baso # 0.0 - Imaging and Cardiology US of Right Breast Status: Image reviewed by me, Report reviewed by me Assessment & Plan - Assessment and Plan (Free Text) Assessment: 21F with worsening right breast erythema, swelling, and tenderness Plan: -No indication for surgery at this time -Continue to trend CBC -Patient would benefit from an MRI of the right breast to rule out mass or abscess considering the ultrasound was non-contributory, patient's breast is clinically worsening despite IV antibiotics, and patient's strong family history of breast cancer -Serial exams -Continue IV abx per ID -Continue hot packs -Continue PRN pain medication -Will continue to follow Thank you for this consult. Patient was discussed with Dr. Hernandez, who will make further recommendations Yanira Ayala, PGY2
--- NOTE | 2017-02-24 07:43 | CP.PCM.PN ---
Subjective - Date & Time of Evaluation Date of Evaluation: 02/24/17 Time of Evaluation: 07:00 - Subjective Subjective: Patient seen and examined at bedside thsi AM. HAYDE. Patient states that she hasn 't had any fevers but that the tenderness and swelling hasn't improved. No further nipple discharge Objective - Vital Signs/Intake and Output Vital Signs (last 24 hours): Temp Pulse Resp BP Pulse Ox 98.4 F 68 20 107/53 L 99 02/24/17 05:30 02/24/17 05:30 02/24/17 05:30 02/24/17 05:30 02/24/17 05:30 Intake and Output: 02/24/17 02/24/17 06:59 18:59 Intake Total 1700 Balance 1700 - Medications Medications: Current Medications Acetaminophen (Tylenol 325mg Tab) 650 mg PO Q4 PRN PRN Reason: Fever >100.4 F Last Admin: 02/23/17 01:12 Dose: 650 mg Enoxaparin Sodium (Lovenox) 40 mg SC DAILY DALLIN PRN Reason: Protocol Last Admin: 02/23/17 09:23 Dose: 40 mg Aztreonam 1 gm/ Sodium (Chloride) 50 mls @ 50 mls/hr IVPB Q8@0000,0800,1600 DALLIN PRN Reason: Protocol Last Admin: 02/24/17 00:36 Dose: 50 mls/hr Vancomycin HCl 1 gm/ Sodium (Chloride) 250 mls @ 75 mls/hr IVPB Q12 DALLIN PRN Reason: Protocol Last Admin: 02/23/17 21:09 Dose: 75 mls/hr Ibuprofen (Motrin Tab) 400 mg PO Q6 PRN PRN Reason: Pain, Mild (1-3) Last Admin: 02/22/17 16:10 Dose: 400 mg Ketorolac Tromethamine (Toradol) 15 mg IVP Q6 PRN PRN Reason: Pain, moderate (4-7) Ketorolac Tromethamine (Toradol) 30 mg IVP Q6 PRN PRN Reason: Pain, severe (8-10) - Labs Labs: 02/23/17 05:20 02/21/17 18:15 - Constitutional Appears: Non-toxic, No Acute Distress - Head Exam Head Exam: ATRAUMATIC, NORMOCEPHALIC - Eye Exam Eye Exam: Normal appearance. absent: Conjunctival injection, Scleral icterus - ENT Exam ENT Exam: Mucous Membranes Moist, Normal Oropharynx - Neck Exam Neck Exam: Full ROM, Normal Inspection. absent: Lymphadenopathy - Respiratory Exam Respiratory Exam: NORMAL BREATHING PATTERN. absent: Accessory Muscle Use, Respiratory Distress - Cardiovascular Exam Cardiovascular Exam: RRR - GI/Abdominal Exam GI & Abdominal Exam: absent: Distended - Extremities Exam Extremities Exam: absent: Calf Tenderness, Pedal Edema, Tenderness - Neurological Exam Neurological Exam: Alert, Awake, Normal Gait, Oriented x3 - Psychiatric Exam Psychiatric exam: Normal Affect, Normal Mood - Skin Skin Exam: Dry, Normal Color, Warm - Additional Findings Additional findings: right breast swollen, notably bigger than left. Tender over the nipple extending up to the ten o'clock position with area of firm, smooth, rubbery tissue under the areola and extending 3-4cm superiorly. No expressible nipple drainage. Bilateral nipple retraction. No erythematous skin changes or peau d' orange. No axillary lymphadenopathy Assessment and Plan - Assessment and Plan (Free Text) Assessment: 21F wit right breast erythema, swelling, and tenderness Plan: -Continue to trend CBC -Would consider further imaging. Repeat Ultrasound vs MRI of the right breast to rule out mass. Will discuss with Dr. Hernandez -Culture nipple discharge if obtainable -Patient should wear support bra if tolerated -Continue IV abx per ID -Continue hot packs -Continue PRN pain medication -Will continue to follow Discussed with Dr. Hernandez, further recs per him Yanira Ayala, PGY2
--- NOTE | 2017-02-24 09:08 | PN ---
DATE: 02/23/2017 The patient is found to have a temperature of 101.1, now down to 100 and weight is 126 pounds. White count was 18 on admission and now it is 9. Hemoglobin is normal. SMA-6 is normal. Strep negative. Micro and blood cultures are negative. The patient had a breast ultrasound on admission 02/21/2017, showed no evidence of abscess. Consultation done by Dr. Sophie Ayala. of the right breast is diffusely swollen. No retraction . There is a marked tenderness at 10 o'clock. There was a history of blood from this area. I do not see evidence of a test. We will order that. It is ordered, but not done. The patient is currently on Azactam and vancomycin. Steven Hernandez MD
[2017-02-24] MEDS: Enoxaparin 40 mg Syringe SC SCH (09:20)
[2017-02-24 11:21] LABS: HEMATOCRIT 34.3 % (34.0-47.0); MEAN CORPUSCULAR HEMOGLOBIN 31.2 pg (27.0-31.0); MEAN CORPUSCULAR HGB CONC 32.2 g/dL (33.0-37.0); RED CELL DISTRIBUTION WIDTH 14.3 % (11.5-14.5); WHITE BLOOD COUNT 5.8 K/uL (4.8-10.8)
--- NOTE | 2017-02-24 11:21 | CP.PCM.PN ---
Subjective - Date & Time of Evaluation Date of Evaluation: 02/24/17 Time of Evaluation: 11:18 - Subjective Subjective: 21-year-old female seen and examined at bedside for mastitis Patient reports feeling better Erythema improved, pain has now localized above the nipple area to the 10o' clock aspect Patient has been afebrile, and leukocytosis has resolved Will await infectious disease recommendations for duration of antibiotic Discussed with surgery, no surgical intervention at this time Objective - Vital Signs/Intake and Output Vital Signs (last 24 hours): Temp Pulse Resp BP Pulse Ox 99.6 F 88 20 107/65 100 02/24/17 08:20 02/24/17 08:20 02/24/17 08:20 02/24/17 08:20 02/24/17 08:20 Physical exam: Constitutional- cooperative, awake, alert. Head- NCAT, PERRL Eye- PERRL, normal accommodation ENT- normal exam, MMM. Neck- normal inspection, supple, no JVD Respiratory- CTAB, no wheezes rales rhonchi Chestright breast is significantly larger than left, tenderness localized above the nipple to the 10:00 position, erythema has also improved Cardiovascular- RRR, +S1, +S2 no MRG GI/Abdominal- normal bowel sounds, soft, no mass, no hsm Skin- warm, dry Extremities Exam- normal capillary refill, normal inspection Neurological Exam- alert, stable gait Psych- normal mood, normal affect Intake and Output: 02/24/17 02/24/17 06:59 18:59 Intake Total 1700 Balance 1700 - Medications Medications: Current Medications Acetaminophen (Tylenol 325mg Tab) 650 mg PO Q4 PRN PRN Reason: Fever >100.4 F Last Admin: 02/23/17 01:12 Dose: 650 mg Enoxaparin Sodium (Lovenox) 40 mg SC DAILY DALLIN PRN Reason: Protocol Last Admin: 02/24/17 09:20 Dose: 40 mg Aztreonam 1 gm/ Sodium (Chloride) 50 mls @ 50 mls/hr IVPB Q8@0000,0800,1600 DALLIN PRN Reason: Protocol Last Admin: 02/24/17 08:08 Dose: 50 mls/hr Vancomycin HCl 1 gm/ Sodium (Chloride) 250 mls @ 75 mls/hr IVPB Q12 DALLIN PRN Reason: Protocol Last Admin: 02/24/17 09:19 Dose: 75 mls/hr Ibuprofen (Motrin Tab) 400 mg PO Q6 PRN PRN Reason: Pain, Mild (1-3) Last Admin: 02/22/17 16:10 Dose: 400 mg Ketorolac Tromethamine (Toradol) 15 mg IVP Q6 PRN PRN Reason: Pain, moderate (4-7) Ketorolac Tromethamine (Toradol) 30 mg IVP Q6 PRN PRN Reason: Pain, severe (8-10) - Labs Labs: 02/23/17 05:20 02/21/17 18:15 Assessment and Plan - Assessment and Plan (Free Text) Plan: 21 y/o lady, no significcant PMH, came in 2/2 fever and right breast pain and swelling. 1. Right Breast Cellulitis/Mastitis , non puerperal Pt came in with fever, elevated WBC , breast pain, swelling, tenderness Noted a tinge of blood on cotton used to cover nipple however denies any gross bloody discharge. NO FURTHER DISCHARGE ON DURATION OF ADMISSION Patient has been afebrile and leukocytosis has resolved Pt started on IV Clinda and Aztreonam ID consulted- rec to cont Aztreonam and change Clinda to Vanco, given slowly will obtain surgery cx, NO SURGICAL INTERVENTION AT THIS TIME. We'll await infectious disease recommendation for duration of IV antibiotic's Warm compress Pain mgt Blood c/s : pending 2. DVT proph - Lovenox
[2017-02-24 11:26] LABS: MEAN CELL VOLUME 96.6 fl (81.0-99.0)
--- NOTE | 2017-02-24 16:43 | CP.PCM.PN ---
Subjective - Date & Time of Evaluation Date of Evaluation: 02/24/17 Time of Evaluation: 13:00 - Subjective Subjective: ID note- Pt. seen and examined today . Pt. denies any fever or chills but she is concerned bc the right breast continues to be larger than the left one and she states this is not usual for her. No further discharge from the right nipple. Objective - Vital Signs/Intake and Output Vital Signs (last 24 hours): Temp Pulse Resp BP Pulse Ox 98.6 F 73 20 108/62 99 02/24/17 15:44 02/24/17 15:44 02/24/17 15:44 02/24/17 15:44 02/24/17 15:44 Intake and Output: 02/24/17 02/24/17 06:59 18:59 Intake Total 1700 Balance 1700 - Medications Medications: Current Medications Acetaminophen (Tylenol 325mg Tab) 650 mg PO Q4 PRN PRN Reason: Fever >100.4 F Last Admin: 02/23/17 01:12 Dose: 650 mg Enoxaparin Sodium (Lovenox) 40 mg SC DAILY DALLIN PRN Reason: Protocol Last Admin: 02/24/17 09:20 Dose: 40 mg Aztreonam 1 gm/ Sodium (Chloride) 50 mls @ 50 mls/hr IVPB Q8@0000,0800,1600 D[place]IN PRN Reason: Protocol Last Admin: 02/24/17 15:41 Dose: 50 mls/hr Vancomycin HCl 1 gm/ Sodium (Chloride) 250 mls @ 75 mls/hr IVPB Q12 DALLIN PRN Reason: Protocol Last Admin: 02/24/17 09:19 Dose: 75 mls/hr Ibuprofen (Motrin Tab) 400 mg PO Q6 PRN PRN Reason: Pain, Mild (1-3) Last Admin: 02/22/17 16:10 Dose: 400 mg Ketorolac Tromethamine (Toradol) 15 mg IVP Q6 PRN PRN Reason: Pain, moderate (4-7) Ketorolac Tromethamine (Toradol) 30 mg IVP Q6 PRN PRN Reason: Pain, severe (8-10) - Labs Labs: - Additional Findings Additional findings: - Constitutional Appears: No Acute Distress - Head Exam Head Exam: ATRAUMATIC, NORMAL INSPECTION - Eye Exam Eye Exam: EOMI, PERRL - ENT Exam ENT Exam: Normal Oropharynx - Neck Exam Neck exam: Positive for: Full Rom - Respiratory Exam Respiratory Exam: Clear to Auscultation Bilateral, NORMAL BREATHING PATTERN - Cardiovascular Exam Cardiovascular Exam: RRR, +S1, +S2 - GI/Abdominal Exam GI & Abdominal Exam: Normal Bowel Sounds, Soft Additional comments: NT, ND - Extremities Exam Extremities exam: Positive for: normal inspection - Neurological Exam Neurological exam: Alert, Oriented x3 - Skin Additional comments: Right breast- no more erythema on the right breast, no nipple discharge, no lumps on exam right breast larger than the left but no fluctuation present ( patient's mother present at bedside). Laboratory Results - last 72 hr 02/21/17 02/21/17 02/21/17 18:15 18:15 18:15 WBC 18.1 H D RBC 4.28 Hgb 13.3 Hct 40.4 MCV 94.4 MCH 31.0 MCHC 32.8 L RDW 13.8 Plt Count 287 MPV 6.9 L Neut % (Auto) 92.3 H Lymph % (Auto) 4.[address] [place] % (Auto) 3.4 Eos % (Auto) 0.1 Baso % (Auto) 0.1 Neut # 16.7 H Lymph # 0.[address] [place] # 0.6 Eos # 0.0 Baso # 0.0 Neutrophils % (Manual) 87 H Band Neutrophils % 4 H Lymphocytes % (Manual) 5 L Monocytes % (Manual) 4 Platelet Estimate Normal Anisocytosis (manual) Slight Macrocytosis (manual) Slight Sodium 139 Potassium 3.7 Chloride 104 Carbon Dioxide 22 Anion Gap 17 BUN 11 Creatinine 0.7 Est GFR ( Amer) > 60 Est GFR (Non-Af Amer) > 60 Random Glucose 102 Lactic Acid 1.4 Calcium 9.2 Beta HCG, Quant Vancomycin Trough Infectious [place] Assay Grp A Beta Strep Ag 02/21/17 02/21/17 02/22/17 18:15 18:15 05:50 WBC 12.9 H RBC 3.44 L Hgb 10.9 L D Hct 32.4 L MCV 94.2 MCH 31.6 H MCHC 33.6 RDW 13.3 Plt Count 231 MPV 7.0 L Neut % (Auto) 89.2 H Lymph % (Auto) 5.[address] [place] % (Auto) 4.3 Eos % (Auto) 0.8 Baso % (Auto) 0.2 Neut # 11.5 H Lymph # 0.[address] [place] # 0.6 Eos # 0.1 Baso # 0.0 Neutrophils % (Manual) Band Neutrophils % Lymphocytes % (Manual) Monocytes % (Manual) Platelet Estimate Anisocytosis (manual) Macrocytosis (manual) Sodium Potassium Chloride Carbon Dioxide Anion Gap BUN Creatinine Est GFR ( Amer) Est GFR (Non-Af Amer) Random Glucose Lactic Acid Calcium Beta HCG, Quant Vancomycin Trough Infectious [place] Assay Negative Grp A Beta Strep Ag Negative 02/23/17 02/24/17 02/24/17 05:20 05:55 06:00 WBC 9.3 RBC 3.41 L Hgb 10.9 L Hct 32.0 L MCV 93.9 MCH 31.9 H MCHC 34.0 RDW 13.8 Plt Count 219 MPV 6.7 L Neut % (Auto) 71.7 Lymph % (Auto) 18.[address] [place] % (Auto) 6.1 Eos % (Auto) 3.3 Baso % (Auto) 0.2 Neut # 6.7 Lymph # 1.7 [place] # 0.6 Eos # 0.3 Baso # 0.0 Neutrophils % (Manual) Band Neutrophils % Lymphocytes % (Manual) Monocytes % (Manual) Platelet Estimate Anisocytosis (manual) Macrocytosis (manual) Sodium Potassium Chloride Carbon Dioxide Anion Gap BUN Creatinine Est GFR ( Amer) Est GFR (Non-Af Amer) Random Glucose Lactic Acid Calcium Beta HCG, Quant < 2.39 Vancomycin Trough 6.[address] [place] Assay Grp A Beta Strep Ag 02/24/17 10:40 WBC 5.8 RBC 3.55 L Hgb 11.1 L Hct 34.3 MCV 96.6 D MCH 31.2 H MCHC 32.2 L RDW 14.3 Plt Count 246 MPV Neut % (Auto) Lymph % (Auto) [place] % (Auto) Eos % (Auto) Baso % (Auto) Neut # Lymph # [place] # Eos # Baso # Neutrophils % (Manual) Band Neutrophils % Lymphocytes % (Manual) Monocytes % (Manual) Platelet Estimate Anisocytosis (manual) Macrocytosis (manual) Sodium Potassium Chloride Carbon Dioxide Anion Gap BUN Creatinine Est GFR ( Amer) Est GFR (Non-Af Amer) Random Glucose Lactic Acid Calcium Beta HCG, Quant Vancomycin Trough Infectious [place] Assay Grp A Beta Strep Ag Microbiology 02/22/17 16:40 Blood-Venous Blood Culture - Preliminary NO GROWTH AFTER 48 HOURS 02/22/17 16:38 Blood-Venous Blood Culture - Preliminary NO GROWTH AFTER 48 HOURS 02/21/17 18:40 Blood-Venous Blood Culture - Preliminary NO GROWTH AFTER 48 HOURS 02/21/17 18:10 Blood-Venous Blood Culture - Preliminary NO GROWTH AFTER 48 HOURS 02/21/17 18:15 Throat Group A Strep Throat Culture - Final NO BETA STREP GROUP A ISOLATED. 02/21/17 20:43 Urine Urine Culture - Final No Growth (<1,000 CFU/ML) Assessment and Plan (1) Mastitis Status: Acute (2) Fever Status: Acute - Assessment and Plan (Free Text) Assessment: A/P- 21 year old female with right mastitis, rule out abscess. afebrile today . Leukocytosis has resolved. blood cx- neg x 4 breast US as per report no cyst or mas or any fluid collection. plan- d/c Iv aztreonam advise to also continue with IV vancomyicn day #3 keep trough <15. advise to apply warm compress to the right breast region not directly on the nipple. would highly advise for her to be seen by breast specialist for further evaluation as soon as possible once she is discharged since there is no breast surgeon at this hospital. pt. would need breast MRI as well for further evaluation. if patient is being d/c advise to be d/c on clindamycin po 600 mg [id number] for 7 more days. advised pt. at length to be seen by breast specialist and breast center perhaps [facility] as pt. may need biopsy. All above d/w patient and her mother who is at bedside and they verbalize full understanding of all above. All above was also d/e the hospitalist
[2017-02-25 07:47] LABS: BASO % 0.5 % (0.0-2.0); EOS # 0.4 K/uL (0.0-0.7); EOS % 9.4 % (0.0-4.0); HEMATOCRIT 37.1 % (34.0-47.0); LYMPH # 1.2 K/uL (1.0-4.3); MEAN CELL VOLUME 94.7 fl (81.0-99.0); MEAN CORPUSCULAR HEMOGLOBIN 31.2 pg (27.0-31.0); MEAN PLATELET VOLUME 7.2 fl (7.2-11.7); MONO # 0.3 K/uL (0.0-0.8); NEUT % 51.1 % (50.0-75.0); RED CELL DISTRIBUTION WIDTH 13.7 % (11.5-14.5); WHITE BLOOD COUNT 3.9 K/uL (4.8-10.8)
[2017-02-25 08:14] LABS: BLOOD UREA NITROGEN 7 mg/dl (7-17); CALCIUM 9.1 mg/dL (8.4-10.2); CARBON DIOXIDE 24 mmol/L (22-30); CHLORIDE 109 mmol/L (98-107); GFR AFRICAN-AMERICAN > 60; GLUCOSE,RANDOM 91 mg/dL (65-105); POTASSIUM 3.9 MMOL/L (3.6-5.0); SODIUM 142 mmol/l (132-148)
--- NOTE | 2017-02-25 08:22 | CP.PCM.PN ---
Subjective - Date & Time of Evaluation Date of Evaluation: 02/25/17 Time of Evaluation: 08:19 - Subjective Subjective: Surgery: Dr. Hernandez Patient feeling much better today. Denies f/c/n/v. She states breast has reduced in swelling and pain significantly improved. she denies drainage from nipple. Per nursing no acute events overnight. Objective - Vital Signs/Intake and Output Vital Signs (last 24 hours): Temp Pulse Resp BP Pulse Ox 98.1 F 63 18 109/66 99 02/25/17 00:42 02/25/17 00:42 02/25/17 00:42 02/25/17 00:42 02/25/17 00:42 - Medications Medications: Current Medications Acetaminophen (Tylenol 325mg Tab) 650 mg PO Q4 PRN PRN Reason: Fever >100.4 F Last Admin: 02/23/17 01:12 Dose: 650 mg Enoxaparin Sodium (Lovenox) 40 mg SC DAILY DALLIN PRN Reason: Protocol Last Admin: 02/24/17 09:20 Dose: 40 mg Vancomycin HCl 1 gm/ Sodium (Chloride) 250 mls @ 75 mls/hr IVPB Q12 DALLIN PRN Reason: Protocol Last Admin: 02/24/17 09:19 Dose: 75 mls/hr Ibuprofen (Motrin Tab) 400 mg PO Q6 PRN PRN Reason: Pain, Mild (1-3) Last Admin: 02/22/17 16:10 Dose: 400 mg Ketorolac Tromethamine (Toradol) 15 mg IVP Q6 PRN PRN Reason: Pain, moderate (4-7) Ketorolac Tromethamine (Toradol) 30 mg IVP Q6 PRN PRN Reason: Pain, severe (8-10) - Labs Labs: 02/25/17 06:00 02/25/17 06:00 - Constitutional Appears: Non-toxic, No Acute Distress - Head Exam Head Exam: ATRAUMATIC, NORMOCEPHALIC - Eye Exam Eye Exam: EOMI, Normal appearance - ENT Exam ENT Exam: Mucous Membranes Moist - Respiratory Exam Respiratory Exam: NORMAL BREATHING PATTERN. absent: Respiratory Distress - Cardiovascular Exam Cardiovascular Exam: REGULAR RHYTHM. absent: Tachycardia - Skin Skin Exam: Dry, Warm - Additional Findings Additional findings: Breast exam: right breast swelling decreased from yesterday. Less tender to palpation. Dense breast tissue less appreciated today on exam. no overlying skin changes or expressible nipple discharge. Assessment and Plan - Assessment and Plan (Free Text) Assessment: 21 y/o female w/ mastitis Plan: -no u/s evidence of abscess, patient improving clinically -cont warm compress -cont abx per ID -cleared from surgical standpoint -patient instructed to f/u with Dr. Hernandez in office in 1-2 weeks, further imaging can be done as outpatient if warranted on follow up -No surgical intervention at this time -d/w Dr. Hernandez [facility] PGY3
[2017-02-25] MEDS: Enoxaparin 40 mg Syringe SC SCH (09:42)
--- NOTE | 2017-02-25 10:05 | CP.PCM.DIS ---
Provider - Provider Date of Admission: 02/21/17 19:53 Attending physician: Thor Smith Consults: Surgery : Dr Hernandez ID: [id number] wells Time Spent in preparation of Discharge (in minutes): 30 Diagnosis - Discharge Diagnosis (1) Mastitis Status: Acute Hospital Course - Lab Results Lab Results: Micro Results 02/21/17 18:40 Blood-Venous Blood Culture - Preliminary NO GROWTH AFTER 3 DAYS 02/21/17 18:10 Blood-Venous Blood Culture - Preliminary NO GROWTH AFTER 3 DAYS 02/22/17 16:40 Blood-Venous Blood Culture - Preliminary NO GROWTH AFTER 48 HOURS 02/22/17 16:38 Blood-Venous Blood Culture - Preliminary NO GROWTH AFTER 48 HOURS 02/21/17 18:15 Throat Group A Strep Throat Culture - Final NO BETA STREP GROUP A ISOLATED. 02/21/17 20:43 Urine Urine Culture - Final No Growth (<1,000 CFU/ML) Most Recent Lab Values WBC 3.9 K/uL (4.8-10.8) L 02/25/17 06:00 RBC 3.92 Mil/uL (3.80-5.20) 02/25/17 06:00 Hgb 12.2 g/dL (12.0-16.0) 02/25/17 06:00 Hct 37.1 % (34.0-47.0) 02/25/17 06:00 MCV 94.7 fl (81.0-99.0) 02/25/17 06:00 MCH 31.2 pg (27.0-31.0) H 02/25/17 06:00 MCHC 33.0 g/dL (33.0-37.0) 02/25/17 06:00 RDW 13.7 % (11.5-14.5) 02/25/17 06:00 Plt Count 291 K/uL (130-400) 02/25/17 06:00 MPV 7.2 fl (7.2-11.7) 02/25/17 06:00 Neut % (Auto) 51.1 % (50.0-75.0) 02/25/17 06:00 Lymph % (Auto) 32.0 % (20.0-40.0) 02/25/17 06:00 [place] % (Auto) 7.0 % (0.0-10.0) 02/25/17 06:00 Eos % (Auto) 9.4 % (0.0-4.0) H 02/25/17 06:00 Baso % (Auto) 0.5 % (0.0-2.0) 02/25/17 06:00 Neut # 2.0 K/uL (1.8-7.0) 02/25/17 06:00 Lymph # 1.2 K/uL (1.0-4.3) 02/25/17 06:00 [place] # 0.3 K/uL (0.0-0.8) 02/25/17 06:00 Eos # 0.4 K/uL (0.0-0.7) 02/25/17 06:00 Baso # 0.0 K/uL (0.0-0.2) 02/25/17 06:00 Neutrophils % (Manual) 87 % (42-75) H 02/21/17 18:15 Band Neutrophils % 4 % (0-2) H 02/21/17 18:15 Lymphocytes % (Manual) 5 % (20-50) L 02/21/17 18:15 Monocytes % (Manual) 4 % (0-10) 02/21/17 18:15 Platelet Estimate Normal (NORMAL) 02/21/17 18:15 Anisocytosis (manual) Slight 02/21/17 18:15 Macrocytosis (manual) Slight 02/21/17 18:15 Sodium 142 mmol/l (132-148) 02/25/17 06:00 Potassium 3.9 MMOL/L (3.6-5.0) 02/25/17 06:00 Chloride 109 mmol/L (98-107) H 02/25/17 06:00 Carbon Dioxide 24 mmol/L (22-30) 02/25/17 06:00 Anion Gap 13 (10-20) 02/25/17 06:00 BUN 7 mg/dl (7-17) 02/25/17 06:00 Creatinine 0.5 mg/dL (0.7-1.2) L 02/25/17 06:00 Est GFR ( Amer) > 60 02/25/17 06:00 Est GFR (Non-Af Amer) > 60 02/25/17 06:00 Random Glucose 91 mg/dL (65-105) 02/25/17 06:00 Lactic Acid 1.4 MMOL/L (0.7-2.1) 02/21/17 18:15 Calcium 9.1 mg/dL (8.4-10.2) 02/25/17 06:00 Beta HCG, Quant < 2.39 mIU/mL 02/24/17 05:55 Vancomycin Trough 6.9 ug/mL (5.0-10.0) 02/24/17 06:00 Infectious [place] Assay Negative (NEGATIVE) 02/21/17 18:15 Grp A Beta Strep Ag Negative (NEGATIVE) 02/21/17 18:15 - Hospital Course Hospital Course: 21 y/o lady, no significcant PMH, came in 2/2 fever and right breast pain and swelling. 1. Right Breast Cellulitis/Mastitis , non puerperal Pt came in with fever, elevated WBC , breast pain, swelling, tenderness Noted a tinge of blood on cotton used to cover nipple however denies any gross bloody discharge. NO FURTHER DISCHARGE ON DURATION OF ADMISSION Patient has been afebrile and leukocytosis has resolved Pt started on IV Clinda and Aztreonam ID consulted- rec to cont Aztreonam and change Clinda to Vanco, given slowly Surgery consulted , NO SURGICAL INTERVENTION, no abscess on US of Breast Warm compress Pain mgt Blood c/s : negative ID rec PO Clinda on discharge Pt is now afebrile, leukocytosis resolved , pain and swelling markedly improved will d/c pt home advised pt to be seen by Breast specialist on discharge, may need further imaging as outpt ff up at [facility] clinic constance appt with dr Hernandez in 1-2 wks 2. DVT proph - Lovenox Discharge Exam - Head Exam Head Exam: ATRAUMATIC, NORMAL INSPECTION, NORMOCEPHALIC - Eye Exam Eye Exam: EOMI, Normal appearance, PERRL Pupil Exam: NORMAL ACCOMODATION - ENT Exam ENT Exam: Mucous Membranes Moist, Normal External Ear Exam - Neck Exam Neck exam: Full Rom - Respiratory Exam Respiratory Exam: NORMAL BREATHING PATTERN. absent: Respiratory Distress - Cardiovascular Exam Cardiovascular Exam: REGULAR RHYTHM, +S1, +S2 Additional comments: Breast : no longer tender, erythema resolved , decrease breast swelling and warmth - GI/Abdominal Exam GI & Abdominal Exam: Normal Bowel Sounds, Soft. absent: Tenderness - Extremities Exam Extremities exam: full ROM, normal capillary refill, normal inspection, pedal pulses present - Back Exam Back exam: FULL ROM. absent: CVA tenderness (L), CVA tenderness (R) - Psychiatric Exam Psychiatric exam: Normal Affect, Normal Mood - Skin Skin Exam: Dry, Normal Color, Warm Discharge Plan - Discharge Medications Prescriptions: Clindamycin [Cleocin] 600 mg PO Q8 7 Days #42 cap Lactobacillus Acidophilus [Bacid Acidophilus] 1 cap PO BID #14 cap - Follow Up Plan Condition: GOOD Disposition: HOME/ ROUTINE Instructions: Mastitis (DC) Additional Instructions: appt [facility] clinic in 1 wk [phone] Hernandez in 1-2 wks Breast specialist appt constance wear bra for support if tolerated take medication as prescribed ( sent to [facility] ) May return to school Monday02/27/17 No gym or contact sports Seek medical attention if symptoms worsen or for any other concerns Referrals: Steven Hernandez MD [Staff Provider] - Jay Melissa MD [Staff Provider] -
[2017-02-25 11:01] VITALS: BP 103/58; PULSE 67; RESP 17; TEMP 98.8; O2SAT 100
== END 2017-02-25 13:30 | disposition home or self-care (01) | DRG 601 ==
LOC: H.ER 16:20 → H.ERHOLD 19:53 → H.PEDS 21:49
PROVIDERS: ADMIT Internal Medicine; ATTEND Internal Medicine
DX: N61.0 Mastitis without abscess (principal); F32.9 Major depressive disorder, single episode, unspecified; J45.909 Unspecified asthma, uncomplicated; B34.9 Viral infection, unspecified; Z80.3 Family history of malignant neoplasm of breast; J02.9 Acute pharyngitis, unspecified; R55 Syncope and collapse; Z88.0 Allergy status to penicillin

== ENCOUNTER 2017-11-03 02:47 | Emergency (ER) | payer MEDICAID, OTHER ==
[2017-11-03 02:48] VITALS: BMI 23.1
[2017-11-03 03:37] VITALS: PULSE 71; TEMP 97.9; O2SAT 99
--- NOTE | 2017-11-03 04:04 | ED PDOC ---
HPI: Female Pain Time Seen by Provider: 11/03/17 03:35 Chief Complaint (Nursing): Female Genitourinary Chief Complaint (Provider): dysuria History Per: Patient History/Exam Limitations: no limitations Onset/Duration Of Symptoms: Days (1 week), Waxing/Waning Current Symptoms Are (Timing): Still Present Quality Of Discomfort: Burning, "Pain" Additional Complaint(s): 22 y/o female presents with intermittent dysuria x 1 week, worsening tonight. Associated suprapubic discomfort. Denies fever, nausea/vomiting, back pain, hematuria, vaginal bleeding/discharge. Took urinary pain reliever from the pharmacy. Past Medical History Reviewed: Historical Data, Nursing Documentation Vital Signs: Last Vital Signs Temp 97.9 F 11/03/17 03:35 Pulse 71 11/03/17 03:35 Resp 16 11/03/17 03:35 BP 100/64 11/03/17 03:35 Pulse Ox 99 11/03/17 03:35 - Medical History PMH: Asthma, Depression Denies: Chronic Kidney Disease - Surgical History Surgical History: No Surg Hx - Family History Family History: States: Unknown Family Hx - Home Medications Home Medications: Ambulatory Orders Medication Instructions Recorded Acetaminophen [Tylenol 325mg tab] 650 mg PO Q4 PRN tab 02/25/17 Clindamycin [Cleocin] 600 mg PO Q8 7 Days #42 cap 02/25/17 Ibuprofen [Motrin Tab] 400 mg PO Q6 PRN tab 02/25/17 Lactobacillus Acidophilus [Bacid 1 cap PO BID #14 cap 02/25/17 Acidophilus] Nitrofurantoin Macrocrystals 100 mg PO BID #13 cap 11/03/17 [Macrobid] - Allergies Allergies/Adverse Reactions: Allergies Allergy/AdvReac Type Severity Reaction Status Date / Time Penicillins Allergy Mild RASH Verified 11/03/17 03:35 Review of Systems ROS Statement: Except As Marked, All Systems Reviewed And Found Negative Genitourinary Female: Positive for: Dysuria Physical Exam - Reviewed Nursing Documentation Reviewed: Yes Vital Signs Reviewed: Yes - Physical Exam Appears: Positive for: Well, Non-toxic, No Acute Distress Head Exam: Positive for: ATRAUMATIC, NORMAL INSPECTION, NORMOCEPHALIC Skin: Positive for: Normal Color Eye Exam: Positive for: Normal appearance ENT: Positive for: Normal ENT Inspection Cardiovascular/Chest: Positive for: Regular Rate, Rhythm Respiratory: Positive for: Normal Breath Sounds Gastrointestinal/Abdominal: Positive for: Tenderness (suprapubic) Back: Positive for: Normal Inspection Neurologic/Psych: Positive for: Alert, Oriented - ECG O2 Sat by Pulse Oximetry: 99 - Progress ED Course And Treament: udip, u/a, uc&S Patient educated on findings, dose MAcrobid, Pyridium given in ED. Patient discharged with rx Macrobid Advised fluids Follow up PMD 2-3 days Return precautions given Disposition - Clinical Impression Clinical Impression: Urinary tract infection - Patient ED Disposition Is Patient to be Admitted: No Counseled Patient/Family Regarding: Studies Performed, Diagnosis, Need For Followup, Rx Given - Disposition Referrals: [facility] [Outside] Disposition: Routine/Home Disposition Time: 04:15 Condition: STABLE Prescriptions: Nitrofurantoin Macrocrystals [Macrobid] 100 mg PO BID #13 cap Instructions: Urinary Tract Infections in Adults Forms: [facility] (Telugu)
[2017-11-03 05:24] VITALS: BP 102/64; RESP 18
[2017-11-03 05:42] LABS: SQUAMOUS EPITHIAL 12 /hpf (0-5); URINE BACTERIA OCC (<OCC); URINE BILIRUBIN NEGATIVE (NEGATIVE); URINE BLOOD LARGE (NEGATIVE); URINE CLARITY CLOUDY (Clear); URINE COLOR AMBER (YELLOW); URINE GLUCOSE (UA) NEG (Normal); URINE LEUKOCYTE ESTERASE MOD Leu/uL (Negative); URINE PROTEIN 100 mg/dL (NEGATIVE); WBC CLUMPS MOD /hpf
== END 2017-11-03 04:25 | disposition home or self-care (01) ==
LOC: H.ER 02:47
DX: N39.0 Urinary tract infection, site not specified (principal); F32.9 Major depressive disorder, single episode, unspecified; Z88.0 Allergy status to penicillin